=== PATIENT | female | born 1990 | race African-American/Black ===

== ENCOUNTER 2016-03-26 11:23 | Day surgery (SDC) | payer OTHER ==
[~2016-03-26] VITALS: Ht 177.8 cm; Wt 115.2 kg
[2016-03-26] VITALS (9 sets, daily range): BP systolic 121–129; BP diastolic 65–79; PULSE 52–75; RESP 15–22; O2SAT 100
[~2016-03-26 11:23] MED LIST: BUPR200T34 PO; CHOL40003 PO; FEXO1TAB4 PO; FLUT16SP NS; HYDR-4003 PO; Lactated Ringer's 1,000 ML IV SCH
[2016-03-26] MEDS ORDERED: Propofol 10,000 mCg/mL 20 mL Inj ONE (11:24)
[2016-03-26] MEDS ORDERED: Lidocaine PF 1% 30 mL Inj ONE (11:24)
[2016-03-26] MEDS ORDERED: Ondansetron 2 mg/mL 2 mL Inj ONE (11:24)
[2016-03-26] MEDS ORDERED: Dexamethasone 4 mg/mL Inj ONE (11:24)
[2016-03-26] MEDS ORDERED: fentaNYL-PF 50 mCg/mL 2 mL Inj ONE (11:24)
[2016-03-26] MEDS ORDERED: Lactated Ringer's 1,000 ML IV ONE (11:37)
[2016-03-26] MEDS ORDERED: Atropine 0.4 mg/mL Inj IVPUSH PRN (13:55)
[2016-03-26] MEDS ORDERED: Ondansetron 2 mg/mL 2 mL Inj IVPUSH PRN (13:55)
[2016-03-26] MEDS ORDERED: Lactated Ringer's 1,000 ML IV SCH (13:55)
[2016-03-26] MEDS ORDERED: MetoCLOpramide 5 mg/mL 2 mL Inj IVPUSH PRN (13:55)
[2016-03-26] MEDS ORDERED: HYDROmorphone 1 mg/mL Inj IVPUSH PRN (13:55)
[2016-03-26] MEDS ORDERED: Labetalol 5 mg/mL 4 mL Inj IV PRN (13:55)
[2016-03-26] MEDS ORDERED: hydrALAZINE 20 mg/mL Inj IVPUSH PRN (13:55)
[2016-03-26] MEDS ORDERED: Phenylephrine 10,000 mCg/mL Inj IVPUSH PRN (13:55)
[2016-03-26] MEDS ORDERED: fentaNYL-PF 50 mCg/mL 2 mL Inj IVPUSH PRN (13:55)
[2016-03-26] MEDS ORDERED: Dexamethasone 4 mg/mL Inj IVPUSH PRN (13:55)
[2016-03-26] MEDS ORDERED: Lactated Ringer's 500 ML IV PRN (13:55)
[2016-03-26] MEDS ORDERED: EPHEDrine Sulfate 50 mg/mL Inj IVPUSH PRN (13:55)
--- NOTE | 2016-03-26 13:55 | PCM.HPANE ---
Patient Data Surgeon Admitting Provider: Attending Provider:Felix Poon MD Primary Care Physician:Cande Drake Other Provider:Madelin Ashley Anesthesia Reason for Visit Perirectal Abscess Ht/WT & BMI Height (Feet): 5 Height (Inches): 10 Weight (Kilograms): 115.21 Body Mass Index 36.00 Allergies Coded Allergies: No Known Allergies (Verified Allergy, Unknown, 03/25/16) Diabetes History Hx Diabetes?: No MRSA MRSA: No Medications Hypertension Medication: No Home Meds Incl Beta Bi: No Reported Medications Cholecalciferol (Vitamin D3) (Vitamin D3)4,000 Unit Capsule4,000 Unit PO DAILY 03/25/16 Hydrocodone-Acetaminophen 5-325 mg 1 Each Tablet1 Tablet PO Q4H PRN For Pain Ref 0 03/25/16 Bupropion HCl (Bupropion HCl ER)200 Mg Tablet.er150 Mg PO 03/25/16 Discontinued Reported Medications Fluticasone Propionate (Fluticasone Propionate Nasal)16 Gm North Pitcher.susp2 North Pitcher NS BID #16 GM Ref 0 03/25/16 Fexofenadine/Pseudoephedrine ER ([place]-D 12 Hour)1 Each Tablet1 Tablet PO BID 03/25/16 History HEENT History: Positive for:: Sinus Problem (SINUSITIS, ACUTE RHINO SISUSITIS) Hx of Heart Problems?: No Hx of Respiratory Problem?: Yes Respiratory History: Positive for:: Asthma (STATES SHE GREW OUT OF IT) Denies:: Use of C-PAP Machine Hx Neurologic Problems?: No Hx of GI Problems?: No Hx of Problems?: No Female Hx: Denies:: Currently Skin History: Positive for:: History Skin Disorders? (PERIANAL ABSCESS) Hx Musculoskeletal Problems?: No Hx of Psycho/Social Problems?: Yes Psycho Social History: Positive for:: Hx Depression Hx Surgeries?: Yes (I&D PERIANAL ABSCESS, EYE SURGERY, WISDOM TEETH) Hx Any Other Health Problems?: Yes Hx Alcohol Use: NoHx Substance Use: NoApprox How Many Cigarettes/day: 1/2 PACK DAILY Stop/Bang S-Snoring: Do You Snore Loudly: No T-Tired: feel tired, fatigued: No O-Obsered: Observed not breath: No P-Blood Pressure: treated: No B- Body Mass Index > 35 kg/m2: Yes A- Age over 50: No N- Neck Large Circumference: No G- Gender Male: No CATRACHITO Total Score: 1 CATRACHITO Risk Assessment: Low Risk, <3 Yes Risk Assessment Category Category 1A: Patient has history of documented sleep apnea, and HAS NOT received any narcotic, sedative or anesthesia administration during this stay. Category 1B: Patient has history of documented sleep apnea, and HAS received any narcotic , sedative or anesthesia administration during this stay Category 2: Patient has SUSPECTED Obstructive Sleep Apnea, and HAS received any narcotic , sedative or anesthesia administration during this stay. Category 3: Patient has SUSPECTED Obstructive Sleep Apnea and HAS NOT received narcotic, sedative or anesthesia administration during this stay. Category 4: Outpatient in Procedural Areas with known sleep apnea or who screen positive for High Risk via the STOP/BANG questionnaire. Exam Exam General Appearance: Alert, Oriented X3 HEENT/AIRWAY: MP 3 Lungs: Clear to Auscultation Heart: Exam Unremarkable Plan Impression Patient chart reviewed, patient interviewed and anesthestic plan with risks, benefits, and alternatives discussed, and informed consent obtained. ASA Physical Status: ASA2 Mod Systemic Disease Anesthetic Plan: GA Bene/Risks/Altern/Consents: Yes HP Complete Prior to Induction: Yes Wan Dexter DO Mar 26, 2016 11:33
[2016-03-26] MEDS ORDERED: Bupivacaine-MPF 0.5% W/EPI 30 mL Inj INFILTRATE ONE (14:14)
--- NOTE | 2016-03-26 14:14 | PCM.SURGPO ---
Immediate Operative Note Date of Surgery: Mar 26, 2016 Pre Operative Diagnosis Recurrent Left Perianal Abscess Post Operative Diagnosis Recurrent Left Perineal Abscess Procedure Rectal Examination under anesthesia Surgeon and Director [employer]iconductor Surgeon: Felix Poon MD Assistants: Claudy Cheng, PAC Findings No rectal/ anus abnormality. Small Perineal abscess Complications There were no periprocedural complications identified. Surgical Specimen Removed: No Specimen sent to Pathology: No Anesthetic Administered: GA Grafts, Implants: None Output, Estimated Blood Loss: 0 Blood Admin during surgery: No Attending Statement Information Operator listed was not medically necessary for the completion of the case Felix Poon MD Mar 26, 2016 14:14
--- NOTE | 2016-03-26 15:21 | OP ---
[address] [address] OPERATIVE REPORT PATIENT: PRATIMA CHAPIN : 1990 MR#: [id number] ADMIT: 03/26/2016 JOB ID: [id number] DATE OF SURGERY: 03/26/2016 PREOPERATIVE DIAGNOSIS(ES): Recurrent left perianal abscess. POSTOPERATIVE DIAGNOSIS(ES): Recurrent left perineal abscess. PROCEDURE PERFORMED: Rectal examination under anesthesia. SURGEON: Felix Poon MD. ORTHOPEDIC NURSE PRACTITIONER: Claudy Cheng PA-C. INDICATIONS: The patient is a 26-year-old lady who reportedly had an incision and drainage of her left perianal abscess in January 2016, by her primary care physician. It came back a month later, prompting her to go to our urgent care. There, she had another incision and drainage, and she continued to drain clear and bloody fluid from the area. She met me in clinic on March 21, 2016, at which point I did not see any obvious communication into the anus to suggest fistula in ano but to make sure we get a thorough examination I recommended a rectal examination under anesthesia and possible seton placement if I find a fistula prompting her to come back to the operating room today. PROCEDURE DETAILS: She was placed in a supine position and underwent smooth induction of general anesthesia, and then was placed in the lithotomy position. The perineum was prepped and draped in the usual sterile fashion. Surgical time-out was undertaken using safety checklist, and all were in agreement. 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 With a probe upon which I got a minimal amount of purulent material but the opening did not seem to go anywhere. It was just a cm area underneath the skin without any evidence of communication into deeper areas or any location closer to the anus. After that, I curetted out this area to clean it as best as I could, and infiltrated with 0.5% bupivacaine around it. After that, I examined the anus and the rectum with the speculum to make sure there were no obvious mucosal abnormalities seen, and it was entirely normal. At that time, we terminated the procedure, recovered her from anesthesia and she was taken to the recovery room in stable condition.
--- NOTE | 2016-03-26 16:01 | PCM.ANEP1 ---
Post Anesthesia Phase 1 PACU Phase 1 Assessment Date of Service: Mar 26, 2016 Vital Signs Vital Signs Date Time Temp Pulse Resp B/P Pulse Ox O2 Delivery O2 Flow Rate FiO2 03/26/16 15:03 36.1 58 16 121/75 100 Room Air 03/26/16 14:52 56 21 100 Room Air 03/26/16 14:44 37.9 68 15 128/71 100 Simple Mask 10 03/26/16 14:31 52 19 128/79 100 Simple Mask 10 03/26/16 14:25 54 22 126/75 100 Simple Mask 10 03/26/16 14:20 62 21 129/78 100 Simple Mask 10 03/26/16 14:15 75 15 125/79 100 Simple Mask 10 03/26/16 14:12 36.1 63 20 126/79 100 Simple Mask 10 03/26/16 12:00 35.9 63 16 129/65 100 Room Air Anesthetic Administered: GA Level of Alertness: Awake, talking CROWDER's with Equal Strength: Yes Pain: No Nausea or Vomiting: No Oxygen Delivery: Simple Mask Lungs: Clear to Auscultation Wan Dexter DO Mar 26, 2016 16:01
--- NOTE | 2016-03-26 16:02 | PCM.ANEP2 ---
Post Anesthesia Evaluation ASA/CMS Post Anesthesia VS in Patient's Normal Range?: Yes Resp Stable; Airway Patent?: Yes CV Function & Hydration Stable: Yes Mental Status Recovered?: Yes Pain control Satisfactory?: Yes N/V Control Satisfactory?: Yes Wan Dexter DO Mar 26, 2016 16:02
== END 2016-03-26 23:59 | disposition home or self-care (01) ==
LOC: SAS 11:23
PROVIDERS: ATTEND Student in an Organized Health Care Education/Training Program
DX: K61.1 Rectal abscess (principal); D64.9 Anemia, unspecified; J45.909 Unspecified asthma, uncomplicated; F32.9 Major depressive disorder, single episode, unspecified; E66.9 Obesity, unspecified; Z68.36 Body mass index [BMI] 36.0-36.9, adult; F17.210 Nicotine dependence, cigarettes, uncomplicated
CPT/HCPCS: 45990; J1100; J2405; J7120